=== PATIENT | female | born 1965 | race Two or more races ===

== ENCOUNTER 2018-04-22 08:13 | Outpatient (CLI) | payer OTHER | END 2018-04-22 11:15 | disposition home or self-care (01) | LOC: MRI 08:13 | DX: N83.292 Other ovarian cyst, left side (principal); N83.291 Other ovarian cyst, right side; J98.01 Acute bronchospasm; R06.09 Other forms of dyspnea | CPT/HCPCS: 72197 ==

== ENCOUNTER 2018-11-18 08:49 | Outpatient (CLI) | payer OTHER ==
[~2018-11-18] VITALS: Ht 152.4 cm; Wt 68.9 kg
== END 2018-11-18 09:10 | disposition home or self-care (01) ==
LOC: OFIC 805 08:49
DX: J31.0 Chronic rhinitis (principal); H92.03 Otalgia, bilateral; H60.8X3 Other otitis externa, bilateral

== ENCOUNTER 2019-04-03 15:12 | Outpatient (CLI) | payer OTHER | END 2019-04-03 15:15 | disposition home or self-care (01) | LOC: RAD 15:12 | DX: S82.62XA Displaced fracture of lateral malleolus of left fibula, initial encounter for closed fracture (principal) ==

== ENCOUNTER 2020-03-22 13:06 | Outpatient (CLI) | payer OTHER | END 2020-03-22 13:17 | disposition home or self-care (01) | LOC: MAMO-SONO 13:06 | DX: Z12.31 Encounter for screening mammogram for malignant neoplasm of breast (principal); N60.11 Diffuse cystic mastopathy of right breast; N60.12 Diffuse cystic mastopathy of left breast ==

== ENCOUNTER 2020-04-11 07:36 | Outpatient (CLI) | payer OTHER | END 2020-04-11 08:00 | disposition home or self-care (01) | LOC: LAB 07:36 | PROVIDERS: ATTEND Obstetrics & Gynecology | DX: D64.89 Other specified anemias (principal); E03.8 Other specified hypothyroidism; Z12.11 Encounter for screening for malignant neoplasm of colon; N95.1 Menopausal and female climacteric states; I10 Essential (primary) hypertension; C51.9 Malignant neoplasm of vulva, unspecified; A64 Unspecified sexually transmitted disease; N39.0 Urinary tract infection, site not specified; R97.8 Other abnormal tumor markers; R79.89 Other specified abnormal findings of blood chemistry; E55.9 Vitamin D deficiency, unspecified ==

== ENCOUNTER 2021-03-13 11:50 | Day surgery (SDC) | payer OTHER | END 2021-03-13 21:25 | disposition home or self-care (01) | LOC: CIR.AMB 11:50 | PROVIDERS: ATTEND Student in an Organized Health Care Education/Training Program | DX: N84.0 Polyp of corpus uteri (principal); Z20.822 Contact with and (suspected) exposure to COVID-19 ==